=== PATIENT | male | born 1980 | race Caucasian/White ===

== ENCOUNTER 2022-12-13 15:18 | Emergency (ER) | payer MEDICAID ==
[~2022-12-13] VITALS: Ht 177.8 cm; Wt 106.6 kg
[2022-12-13] MEDS ORDERED: VENTOLIN HFA18 GM INH (19:34)
[2022-12-13] MEDS ORDERED: AMOX TR-K CLV1 EAC1 PO (19:34)
[2022-12-13] MEDS ORDERED: AZITHROMYCIN500 MG PO (19:34)
[2022-12-13 21:32] VITALS: BP 122/64
== END 2022-12-13 21:33 | disposition home or self-care (01) ==
LOC: ED 15:18
DX: J18.9 Pneumonia, unspecified organism (principal); K74.60 Unspecified cirrhosis of liver; Z88.2 Allergy status to sulfonamides; Z20.822 Contact with and (suspected) exposure to COVID-19
CPT/HCPCS: 36415; 71045; 74177; 80053; 81003; 83605; 83690; 83880; 85025; 87502; 99284-25; A9270; C9803; J2543; J7121; Q9967; U0003

== ENCOUNTER 2022-12-23 09:44 | Emergency (ER) | payer OTHER ==
[~2022-12-23] VITALS: Ht 177.8 cm; Wt 106.6 kg
[~2022-12-23 09:44] MED LIST: AMOX TR-K CLV1 EAC1 PO; AZITHROMYCIN500 MG PO; VENTOLIN HFA18 GM INH
--- OUTSIDE RECORDS SUMMARY | 2022-12-23 09:52 | XMS ---
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 Casimiro has no Care Guidelines for this patient. Willis VISIT COUNT (12 MO.) [facility] 2 NOTE: Visits indicate total known visits. ED/[facility] VISIT TRACKING (12 MO.) 12/23/2022 09:45 [facility] Emergency COMPLAINT: - NECK SWELLING, CHEST TIGHTNESS, SOB 12/13/2022 15:[address] [facility] [place] TYPE: Emergency COMPLAINT: - FEVER DIAGNOSES: - Allergy status to sulfonamides - Contact with and (suspected) exposure to COVID-19 - Fever, unspecified - Pneumonia, unspecified organism - Unspecified cirrhosis of liver INPATIENT VISIT TRACKING (12 MO.) No inpatient visits to display in this time frame [email or web address]
[2022-12-23] MEDS ORDERED: K-TAB ER20 MEQ PO (12:30)
[2022-12-23] MEDS ORDERED: PREDNISONE20 MG PO (12:30)
[2022-12-23] MEDS ORDERED: LASIX20 MG PO (12:30)
[2022-12-23 12:52] VITALS: BP 130/74
--- NOTE | 2022-12-24 18:06 | EKG ---
[facility] [address] [facility] [place] [address] Signed Normal sinus rhythm Normal ECG No previous ECGs available Confirmed by BETTE SANDOVAL MD ([id number]) on 12/24/2022 6:06:32 PM Electronically Signed By: BETTE SANDOVAL MD 12/24/22 180 PATIENT NAME: ROBERT ROBERTS GABRIEL Electrocardiogram DATE OF : 82 PHYSICIAN: BETTE SANDOVAL MD REPORT #: [id number] REPORT IS CONFIDENTIAL AND NOT TO BE RELEASED WITHOUT AUTHORIZATION
== END 2022-12-23 12:55 | disposition home or self-care (01) ==
LOC: ED 09:44
DX: R22.1 Localized swelling, mass and lump, neck (principal); K74.60 Unspecified cirrhosis of liver; Z88.2 Allergy status to sulfonamides; Z79.899 Other long term (current) drug therapy
CPT/HCPCS: 36415; 80053; 85025; 85610; 93005; 93010; 96374; 99283-25; J1100

== ENCOUNTER 2023-01-08 18:04 | Emergency (ER) | payer OTHER ==
[~2023-01-08] VITALS: Ht 177.8 cm; Wt 110.9 kg
[~2023-01-08 18:04] MED LIST changes: +CEPHALEXIN500 M1 PO; +K-TAB ER20 MEQ PO; +LASIX20 MG PO; +ONDANSETRON ODT8 MG PO; +PREDNISONE20 MG PO
--- OUTSIDE RECORDS SUMMARY | 2023-01-08 18:06 | XMS ---
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 Casimiro has no Care Guidelines for this patient. [place] V[facility] COUNT (12 MO.) 4 [facility] T[facility] 4 NOTE: Visits indicate total known visits. ED/C VISIT TRACKING (12 MO.) [facility]08/2023 18[facility]05 [facility] COMPLAINT: - YELLOW SKIN, EYES, ABD PAIN 01/06/2023 15:01 [facility] TYPE: Emergency COMPLAINT: - WEAKNESS 12/23/2022 09:45 [facility] TYPE: Emergency COMPLAINT: - NECK SWELLING, CHEST TIGHTNESS, SOB DIAGNOSES: - Allergy status to sulfonamides - Localized swelling, mass and lump, neck - Other buttermaker (current) drug therapy - Unspecified cirrhosis of liver 12/13/2022 15:19 [facility] TYPE: Emergency COMPLAINT: - FEVER DIAGNOSES: - Allergy status to sulfonamides - Contact with and (suspected) exposure to COVID-19 - Fever, unspecified - Pneumonia, unspecified organism - Unspecified cirrhosis of liver INPATIENT VISIT TRACKING (12 MO.) No inpatient visits to display in this time frame [email or web address]
[2023-01-08 20:59] VITALS: BP 115/63
== END 2023-01-08 20:59 | disposition short-term general hospital (02) ==
LOC: ED 18:04
DX: R10.12 Left upper quadrant pain (principal); R17 Unspecified jaundice; Z88.2 Allergy status to sulfonamides; Z79.899 Other long term (current) drug therapy
CPT/HCPCS: 36415; 74177; 80053; 81003; 83690; 85025; 87502; 96375; 99285-25; J2270; J2405; J7030; Q9967; U0003

== ENCOUNTER 2024-01-24 11:21 | Emergency (ER) | payer OTHER ==
[~2024-01-24] VITALS: Ht 177.8 cm; Wt 108.0 kg
[2024-01-24 13:30] VITALS: BP 106/55
== END 2024-01-24 13:30 | disposition home or self-care (01) ==
LOC: ED 11:21
DX: L02.211 Cutaneous abscess of abdominal wall (principal); Z88.8 Allergy status to other drugs, medicaments and biological substances
CPT/HCPCS: 10060; 99282-25

== ENCOUNTER 2024-06-09 22:42 | Emergency (ER) | payer OTHER ==
[~2024-06-09] VITALS: Ht 177.8 cm; Wt 108.0 kg
[2024-06-09 23:45] LABS: ALBUMIN 2.4 g/dL (3.4-5.0); ALBUMIN/GLOBULIN RATIO 0.57 (1.1-2.4); ANION GAP 13.3 (7-21); BILIRUBIN, TOTAL 3.4 ng/dL (0.2-1.0); BUN/CREATININE RATIO 10.52 (6.0-28.6); CALCIUM 8.4 mg/dL (8.5-10.1); CREATININE, SERUM 1.33 mg/dL (0.70-1.30); POTASSIUM 3.3 mmol/L (3.5-5.1); PROTEIN, TOTAL 6.6 g/dL (6.4-8.2)
[2024-06-10] MEDS ORDERED: LACTULOSE10 GM/15 M PO (00:07)
[2024-06-10] MEDS ORDERED: CYCLOBENZAPRINE10 MG PO (00:07)
[2024-06-10] MEDS ORDERED: LACTULOSE 20 GM/30 ML CUP PO ONE (00:15)
[2024-06-10] MEDS ORDERED: CYCLOBENZAPRINE HCL 10 MG HOME.PACK PO ONE (00:30)
[2024-06-10 00:43] VITALS: BP 141/78
== END 2024-06-10 00:43 | disposition home or self-care (01) ==
LOC: ED 22:42
PROVIDERS: Family Medicine
DX: K59.00 Constipation, unspecified (principal); S43.401A Unspecified sprain of right shoulder joint, initial encounter; Z88.8 Allergy status to other drugs, medicaments and biological substances; X50.1XXA Overexertion from prolonged static or awkward postures, initial encounter
CPT/HCPCS: 36415; 73030; 74018; 80053; 99283

== ENCOUNTER 2024-08-14 17:01 | Emergency (ER) | payer OTHER ==
[~2024-08-14] VITALS: Ht 177.8 cm; Wt 121.6 kg
[~2024-08-14 17:01] MED LIST changes: +CYCLOBENZAPRINE10 MG PO; +LACTULOSE10 GM/15 M PO
[2024-08-14] MEDS ORDERED: SODIUM CHLORIDE 0.9% 1,000 ML IV ONE (18:30)
[2024-08-14] MEDS ORDERED: ACETAMINOPHEN 500 MG TAB PO ONE (18:30)
[2024-08-14] MEDS ORDERED: ondansetron HCL 4 MG/2 ML VIAL IV ONE (18:30)
[2024-08-14] MEDS ORDERED: KETOROLAC TROMETHAMINE 30 MG/ML VIAL IV ONE (18:30)
[2024-08-14 18:32] LABS: INFLUENZA B NAA NEGATIVE (NEGATIVE); RESPIRATORY SYNCYTIAL VIR NAA NEGATIVE (NEGATIVE)
[2024-08-14 18:55] LABS: BASOPHILS 0.4 % (0-2); EOSINOPHILS 0.1 % (0-6); HEMOGLOBIN 12.3 g/dL (12.0-18.0); LYMPHOCYTES 5.8 % (24-44); MCH 30.5 (27-36); MCHC 34.3 g/dl (30-36); MCV 88.9 fl (81-99); NEUTROPHILS 87.7 % (39-80); PLATELET COUNT 138 K/uL (140-440); RBC 4.05 M/ul (4.3-5.7)
[2024-08-14] MEDS ORDERED: ALBUTEROL SULFATE 0.083% 3 ML VIAL INH ONE (19:15)
[2024-08-14] MEDS ORDERED: OSELTAMIVIR PHOSPHATE 75 MG HOME.PACK PO ONE (19:15)
[2024-08-14 19:17] LABS: ALBUMIN 3.3 g/dL (3.4-5.0); ALBUMIN/GLOBULIN RATIO 0.97 (1.1-2.4); ANION GAP 12.6 (7-21); BILIRUBIN, TOTAL 2.5 ng/dL (0.2-1.0); BUN/CREATININE RATIO 11.65 (6.0-28.6); CALCIUM 8.5 mg/dL (8.5-10.1); CREATININE, SERUM 1.03 mg/dL (0.70-1.30); POTASSIUM 3.6 mmol/L (3.5-5.1); PROTEIN, TOTAL 6.7 g/dL (6.4-8.2)
[2024-08-14] MEDS ORDERED: VENTOLIN HFA18 GM INH (19:40)
[2024-08-14] MEDS ORDERED: ONDANSETRON 4 MG HOME.PACK SL ONE (19:45)
[2024-08-14 19:55] VITALS: BP 118/56
== END 2024-08-14 20:03 | disposition home or self-care (01) ==
LOC: ED 17:01
PROVIDERS: Emergency Medicine
DX: J10.1 Influenza due to other identified influenza virus with other respiratory manifestations (principal); Z88.2 Allergy status to sulfonamides; Z79.899 Other long term (current) drug therapy; Z11.52 Encounter for screening for COVID-19
CPT/HCPCS: 36415; 71045; 80053; 83880; 84484; 85025; 87502; 94640; 96361; 96374; 96375; 99285-25; A9270; J1885; J2405; J7030; U0002

== ENCOUNTER 2025-02-16 20:21 | Emergency (ER) | payer OTHER ==
[~2025-02-16] VITALS: Ht 177.8 cm; Wt 120.2 kg
[2025-02-16] MEDS ORDERED: LORATADINE10 MG PO (20:31)
[2025-02-16] MEDS ORDERED: VITAMIN D21250 MCG PO (20:32)
[2025-02-16] MEDS ORDERED: FUROSEMIDE20 MG PO (20:32)
[2025-02-16] MEDS ORDERED: POTASSIUM CHLO10 ME2 PO (20:32)
[2025-02-16] MEDS ORDERED: KETOROLAC TROMETHAMINE 60 MG/2 ML VIAL IM ONE (21:30)
[2025-02-16] MEDS ORDERED: ONDANSETRON 4 MG TAB ODT SL ONE (21:30)
[2025-02-16 23:22] LABS: BLOOD/HGB, URINE NEGATIVE (Negative); KETONE, URINE TRACE (Negative); LEUK ESTERASE, URINE NEGATIVE (negative); NITRITE, URINE POSITIVE (negative)
[2025-02-16 23:31] LABS: BACTERIA, URINE 1+ /hpf (negative); CASTS, URINE HYALINE 1+ \\lpf; CRYSTALS, URINE NONE SEEN (0-1+); EPITHELIAL CELLS, URINE SQUAMOUS 1+ /lpf (0-1+)
[2025-02-16 23:32] LABS: REFLEX CULTURE, URINE No (No)
[2025-02-17] MEDS ORDERED: MACROBID 100 M100 MG PO (00:17)
[2025-02-17] MEDS ORDERED: NITROFURANTOIN MONOHYD MACROCR 100 MG HOME.PACK PO ONE ×2 (00:27→00:30)
[2025-02-17 00:35] VITALS: BP 117/71
== END 2025-02-17 00:35 | disposition home or self-care (01) ==
LOC: ED 20:21
PROVIDERS: Family Medicine
DX: N39.0 Urinary tract infection, site not specified (principal); J06.9 Acute upper respiratory infection, unspecified; Z88.2 Allergy status to sulfonamides; Z79.899 Other long term (current) drug therapy
CPT/HCPCS: 71045; 73610; 81001; 96372; 99283-25; A9270; J1885; U0002

== ENCOUNTER 2025-04-11 09:42 | Day surgery (SDC) | payer OTHER ==
[~2025-04-11] VITALS: Ht 177.8 cm; Wt 125.0 kg
[~2025-04-11 09:42] MED LIST changes: +CEFAZOLIN SODIUM 3 GM/30 ML SYR IV SCH; +FUROSEMIDE20 MG PO; +IBLOOD GLUCOSE TEST STRIP 1 EA TEST VI PRN; +LACTATED RINGER'S 1,000 ML IV SCH; +LIDOCAINE HCL 1% 5 ML SDV INJ ONE; +LORATADINE10 MG PO; +MACROBID 100 M100 MG PO; +POTASSIUM CHLO10 ME2 PO; +VITAMIN D21250 MCG PO
[2025-04-11 10:20] VITALS: BP 117/63
[2025-04-11] MEDS ORDERED: LIDOCAINE HCL 2% 5 ML SDV ONE (11:58)
[2025-04-11] MEDS ORDERED: fentaNYL citrate 100 MCG/2 ML VIAL ONE (11:59)
[2025-04-11] MEDS ORDERED: HYDROmorphone HCL 1 MG/ML SYR IV PRN (12:30)
[2025-04-11] MEDS ORDERED: fentaNYL citrate 50 MCG/ML SDV IV PRN (12:30)
[2025-04-11] MEDS ORDERED: IBLOOD GLUCOSE TEST STRIP 1 EA TEST VI PRN (12:30)
[2025-04-11] MEDS ORDERED: PROCHLORPERAZINE EDISYLATE 10 MG/2 ML VIAL IV PRN (12:30)
[2025-04-11] MEDS ORDERED: NALOXONE HCL 0.4 MG SYR IV PRN (12:30)
--- NOTE | 2025-04-11 13:30 | NUR ---
04/11/25 1330 Violette Lynn 1318: PT ARRIVES TO PACU, REACTIVE. REPORT RECIEVED FROM DATA SECURITY COORDINATOR AND NURSING HOME ADMINISTRATOR. BETTIE 1330: PT IS SLEEPING, BUT WILL WAKE UP AND START GRABBING AT HIS FACE OR GOWN.
[2025-04-11 13:46] VITALS: BP 126/61
--- NOTE | 2025-04-11 16:01 | EKG ---
[facility] [address] [facility] [place] [address] Signed Normal sinus rhythm Normal ECG When compared with ECG of 23-DEC-2022 09:51, No significant change was found Confirmed by AARON DERAS MD ([id number]) on 04/11/2025 4:01:50 PM Electronically Signed By: AARON DERAS 04/11/25 1601 PATIENT NAME: ROBERT ROBERTS GABRIEL Electrocardiogram DATE OF : 82 PHYSICIAN: AARON DERAS REPORT #: [id number] REPORT IS CONFIDENTIAL AND NOT TO BE RELEASED WITHOUT AUTHORIZATION
--- NOTE | 2025-04-13 10:30 | PATH ---
[facility] [address] [place], [place] [address] Signed SPECIMEN(S): A LEFT HEMISCROTAL SPECIMEN(S): B RIGHT HEMISCROTAL SPECIMEN SOURCE: A. LEFT HEMISCROTAL B. RIGHT HEMISCROTAL CLINICAL HISTORY: Benign neoplasm of scrotum. FINAL PATHOLOGIC DIAGNOSIS: A. Left hemiscrotum lesion: - Benign epidermoid cyst B. Right hemiscrotum lesion: - Benign epidermoid cyst BB MICROSCOPIC EXAMINATION: Histologic sections of all submitted blocks are examined by light microscopy. These findings, together with the gross examination, support the pathologic diagnosis. GROSS DESCRIPTION: A. The specimen, labeled and designated "Gabino bowman, " and designated on the requisition "incision left hemiscrotum lesion 2.8 cm," is received in formalin and consists of 2.9 x 2.5 x 1.7 cm polypoid portion of skin. The skin surface is flores-brown and wrinkled. Specimen is inked and sectioned revealing a intact cystic structure that that is 2.3 cm in greatest dimension and contains a white grumous material. Administrative Assistant Receptionist sections are submitted in (A1). B. The specimen, labeled and designated "Gabino Roberts, " and designated on the requisition "right Kranthi scrotal lesion, 1.7 cm," is received in formalin and consists of one portion of skin that is 1.5 x 0.8 x 0.7 cm. The skin surface is flores-ly and wrinkled with an ill-defined polypoid projection that is 0.7 x 0.7 cm. The specimen is inked and sectioned revealing an intact cystic structure that is 0.8 cm in greatest dimension and contains a white grumous material. The specimen is entirely submitted in (B1). FB (under the direct supervision of a pathologist) The Gross Description was prepared using a voice recognition system. The report PATIENT NAME: ROBERT ROBERTS PATHOLOGY DATE OF : 82 REPORT #: [id number] PHYSICIAN: DENNISE MENDEZ PCP: RIGO GARCIA PA-C REPORT IS CONFIDENTIAL AND NOT TO BE RELEASED WITHOUT AUTHORIZATION [facility] [address] [place], [place] [address] Signed was reviewed for accuracy; however, sound-alike word errors, addition and/or deletions may occur. If there is any question about this report, please contact Client Services. ADDITIONAL NOTES: Immunohistochemical and/or in situ hybridization studies if performed in this case included appropriate positive controls that reacted as expected. This test was developed and its performance characteristics determined by [facility]. It has not been cleared or approved by the U.S. Food and Drug Administration. The FDA has determined that such clearance or approval is not necessary. This test is used for clinical purposes. It should not be regarded as investigational or for research. [facility] is certified under the Clinical Laboratory Improvement Amendments of 1988 (CLIA) as qualified to perform high complexity clinical laboratory testing. PERFORMING LABORATORY: Technical component was performed by [facility], [address] [place] [id number] (CLIA# [id number]). Professional interpretation was performed by [facility] - [address] [place] [id number] (CLIA#: [id number]). Diagnostician: Jc Gayle MD Pathologist Electronically Signed 04/13/2025 Copies: ~ PATIENT NAME: ROBERT BOWMAN PATHOLOGY DATE OF : 82 REPORT #: [id number] PHYSICIAN: DENNISE PATHOLOGY PCP: RIGO GARCIA PA-C REPORT IS CONFIDENTIAL AND NOT TO BE RELEASED WITHOUT AUTHORIZATION
== END 2025-04-11 14:02 | disposition home or self-care (01) ==
LOC: OPS 09:42 → DS 09:42 → OPS 11:10
PROVIDERS: ATTEND Surgery
PROC: 0VB5XZZ Excision of Scrotum, External Approach (ICD-10-PCS; principal; 2025-04-11 11:10)
DX: L72.0 Epidermal cyst (principal); K70.30 Alcoholic cirrhosis of liver without ascites; G89.29 Other chronic pain; M54.50 Low back pain, unspecified; Z79.899 Other long term (current) drug therapy; Z88.2 Allergy status to sulfonamides
CPT/HCPCS: 00920; 88304; 88305; 93005; 93010; J0690; J2003; J2405; J2704; J3010; J7121

== ENCOUNTER 2025-08-06 08:24 | Emergency (ER) | payer OTHER ==
[~2025-08-06] VITALS: Ht 177.8 cm; Wt 127.8 kg
[~2025-08-06 08:24] MED LIST changes: -CEFAZOLIN SODIUM 3 GM/30 ML SYR IV SCH; -IBLOOD GLUCOSE TEST STRIP 1 EA TEST VI PRN; -LACTATED RINGER'S 1,000 ML IV SCH; -LIDOCAINE HCL 1% 5 ML SDV INJ ONE
[2025-08-06] MEDS ORDERED: ALBUTEROL/IPRATROPIUM 3 ML NEB INH PRN (08:45)
[2025-08-06 09:26] LABS: INFLUENZA B NAA NEGATIVE (NEGATIVE); RESPIRATORY SYNCYTIAL VIR NAA NEGATIVE (NEGATIVE)
[2025-08-06] MEDS ORDERED: VENTOLIN HFA18 GM INH (09:36)
[2025-08-06 09:49] VITALS: BP 133/69
== END 2025-08-06 09:48 | disposition home or self-care (01) ==
LOC: ED 08:24
PROVIDERS: Emergency Medicine
DX: J00 Acute nasopharyngitis [common cold] (principal); Z88.2 Allergy status to sulfonamides; Z59.89 Other problems related to housing and economic circumstances
CPT/HCPCS: 71045; 87502; 94640; 99284-25; U0002